=== PATIENT | female | born 1925 | race Caucasian/White ===

== ENCOUNTER 2016-06-19 12:44 | Emergency (ER) | payer BC ==
[2016-06-19 12:51] VITALS: BP 147/60; PULSE 74; TEMP 97.4; BMI 23.2
--- NOTE | 2016-06-19 12:58 | PDOC ---
History of Present Illness - General Chief Complaint: Injury Stated Complaint: HEAD INJURY Time Seen by Provider: 06/19/16 12:46 - History of Present Illness Initial Comments: 06/19/16 12:58 Chief complaint: No complaints History of present illness: Patient sent from her [place] [facility] after experiencing a fall this morning. She was standing in front of her chair, sunk to the ground, impacting her buttock and striking her head against the front of an arm chair. No loss of consciousness. No change in mental status, according to the facility. 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 Medications: Aricept, Namenda, losartan, atenolol, potassium, simvastatin, furosemide, latuda, Protonix, vitamins Social history: Requires total care at the [facility] facility, has advanced directive and DNR in place. Family history: Unavailable Physical exam: Patient is awake and will follow commands. However, she is nonverbal. Appears in no distress Afebrile, vital signs normal Head atraumatic. No sign of obvious injury including abrasions, lacerations, contusions, ecchymoses, or contusions PERRLA, fundi benign, ENT clear Neck without point tenderness or deformity, good range of motion without obvious pain Lungs clear. No chest wall or rib cage tenderness or deformity CV S1 and S2 normal 2/6 systolic ejection murmur left sternal border no JVD or edema no bruits Abdomen soft nontender without mass or organomegaly Skin clear, no rash, adequate turgor and what mucous membranes Extremities no CCE Neurological C2 to 12 intact except for right lower facial palsy, which is old. There is mild right hemiparesis. Babinski is up on the right. Impression: Fall without loss of consciousness, no evidence of significant injury Plan: EKG and cardiac enzymes, CBC and chemistries, observation. 06/19/16 13:07 Past History - Past Medical History Allergies/Adverse Reactions: Allergies Allergy/AdvReac Type Severity Reaction Status Date / Time No Known Allergies Allergy Verified 06/19/16 12:45 Home Medications: Ambulatory Orders Atenolol [Tenormin -] 50 mg PO BID 12/10/15 Cholecalciferol (Vitamin D3) [Vitamin D3] 2,000 unit PO DAILY 12/10/15 Cyanocobalamin [Vitamin B12 -] 1,000 mcg PO DAILY 12/10/15 Donepezil HCl [Aricept] 10 mg PO DAILY 12/10/15 Furosemide [Lasix -] 40 mg PO Q2D 12/10/15 Furosemide [Lasix -] 80 mg PO DAILY 12/10/15 Lurasidone HCl [Latuda] 40 mg PO HS 12/10/15 Memantine HCl [Namenda -] 10 mg PO BID 12/10/15 Pantoprazole Sodium [Protonix] 40 mg PO DAILY 12/10/15 Potassium Chloride 10 meq PO DAILY 12/10/15 Simvastatin [Zocor -] 10 mg PO HS 12/10/15 Losartan Potassium 50 mg PO DAILY 05/29/16 Anemia: Yes (perncious) Asthma: No Cancer: No Cardiac Disorders: No CVA: No COPD: No CHF: No Dementia: Yes (aggresive) Diabetes: No GI Disorders: Yes (gerd,chronic constipation,) Disorders: Yes (AZOTEMIA) HTN: Yes Hypercholesterolemia: Yes Liver Disease: No Psychiatric Problems: Yes (depression) Seizures: No Thyroid Disease: No Other medical history: HYPOKALEMIA, S/P FALL/PELVIC FX - Surgical History Abdominal Surgery: No Appendectomy: No Cardiac Surgery: No Cholecystectomy: No Lung Surgery: No Neurologic Surgery: No Orthopedic Surgery: Yes - Immunization History Immunization Up to Date: Yes - Psycho/Social/Smoking Cessation Hx Anxiety: No Suicidal Ideation: No Smoking Status: No Smoking History: Unknown if ever smoked Have you smoked in the past 12 months: No Number of Cigarettes Smoked Daily: 0 Information on smoking cessation initiated: No Hx Alcohol Use: No Drug/Substance Use Hx: No Substance Use Type: None Hx Substance Use Treatment: No Trauma Specific PMHX - Complaint Specific PMHX Back Injury: Yes (pelvis fx diagnosed recently , no displacement) *Physical Exam - Vital Signs Last Vital Signs Temp Pulse Resp BP Pulse Ox 97.4 F L 74 18 147/60 98 06/19/16 12:45 06/19/16 12:45 06/19/16 12:45 06/19/16 12:45 06/19/16 12:45 ED Treatment Course - LABORATORY CBC & Chemistry Diagram: 06/19/16 13:15 06/19/16 13:15 Medical Decision Making - Medical Decision Making 06/19/16 14:30 EKG reviewed: Sinus rhythm with first-degree AV block. Otherwise normal axes and intervals. No ST-T wave changes. Labs reviewed: No significant abnormalities. Normal cardiac enzymes. Patient stable, in no distress moving all extremities, no apparent discomfort with head movement, movement of the shoulders or movement of the hips. No significant injury is apparent. Return to nursing facility with observation and follow-up as needed. *DC/Admit/Observation/Transfer Diagnosis at time of Disposition: Accidental fall Qualifiers: Encounter type: initial encounter Qualified Code(s): W19.XXXA - Unspecified fall, initial encounter - Discharge Dispostion Disposition: HOME Condition at time of disposition: Stable Admit: No - Referrals Referrals: Joy Devries MD [Primary Care Provider] - 24 hours - Patient Instructions Printed Discharge Instructions: How to Prevent Falls
[2016-06-19 13:31] LABS: BASOPHIL 0.5 % (0-2.0); EOSINOPHIL 1.4 % (0-4.5); MCHC 32.8 g/dl (32.0-36.0); MEAN CELL VOLUME 94.3 fl (80-96); MEAN PLT VOLUME 8.2 fl (7.5-11.1); NEUTROPHILS 70.9 % (42.8-82.8); PLATELET COUNT 249 K/MM3 (134-434); RDW 12.7 % (11.6-15.6); WHITE BLOOD COUNT 10.3 K/mm3 (4.0-10.0)
[2016-06-19 13:46] LABS: CPK(DFH) 39 IU/L (26-140)
[2016-06-19 13:47] LABS: ALBUMIN 3.5 g/dl (3.5-5.0); BILIRUBIN,TOTAL 0.4 mg/dl (0.2-1.0); CALCIUM 9.2 mg/dl (8.4-10.2); CREATININE 2.3 mg/dl (0.6-1.3); TOT PROT 6.3 g/dl (6.4-8.3)
[2016-06-19 13:55] LABS: TROPONIN I (DFP) < 0.03 ng/ml (0.03-0.50)
--- NOTE | 2016-06-19 15:43 | EKG ---
Test Reason : Blood Pressure : / mmHG Vent. Rate : 062 BPM Atrial Rate : 062 BPM P-R Int : 220 ms QRS Dur : 108 ms QT Int : 450 ms P-R-T Axes : 073 003 082 degrees QTc Int : 456 ms POOR DATA QUALITY, INTERPRETATION MAY BE ADVERSELY AFFECTED SINUS RHYTHM WITH 1ST DEGREE A-V BLOCK OTHERWISE NORMAL ECG WHEN COMPARED WITH ECG OF 05-DEC-2012 09:41, PREMATURE SUPRAVENTRICULAR COMPLEXES ARE NO LONGER PRESENT DE INTERVAL HAS INCREASED VENT. RATE HAS DECREASED BY 32 BPM Confirmed by CHANDRAKANT BLANK MD ([id number]) on 06/19/2016 3:43:05 PM Referred By: DAYANARA ORO Confirmed By:CHANDRAKANT BLANK MD
== END 2016-06-19 15:10 | disposition home or self-care (01) ==
LOC: FER 12:44
DX: Z04.3 Encounter for examination and observation following other accident (principal); W18.39XA Other fall on same level, initial encounter; Y93.89 Activity, other specified; Y92.129 Unspecified place in nursing home as the place of occurrence of the external cause; F03.90 Unspecified dementia, unspecified severity, without behavioral disturbance, psychotic disturbance, mood disturbance, and anxiety; K21.9 Gastro-esophageal reflux disease without esophagitis; I10 Essential (primary) hypertension; F32.9 Major depressive disorder, single episode, unspecified; E87.6 Hypokalemia; D51.0 Vitamin B12 deficiency anemia due to intrinsic factor deficiency
CPT/HCPCS: 36415; 80053; 82550; 84484; 85025; 93005; 99283-25

== ENCOUNTER 2016-07-06 17:20 | Emergency (ER) | payer BC ==
[2016-07-06 18:03] VITALS: BP 132/55; PULSE 58; TEMP 98.1; BMI 23.1
--- NOTE | 2016-07-06 19:03 | PDOC ---
History of Present Illness - General History Source: [facility]ustodial Records Exam Limitations: Dementia - History of Present Illness Initial Comments: 07/06/16 19:18 The patient is a 89 year old female, with a significant past medical history of CVA with right facial and hemiparesis, severe dementia, GERD, HTN, CHF, and elevated cholesterol who presents to the emergency department s/p mechanical fall, today. The patient is not on any blood thinners. She denies any complaints of pain. jail reports the fall was unwitnessed and states there was a red nilo on the patients back. This HPI is thus limited due to dementia. PAST MEDICAL HISTORY: See HPI PAST SURGICAL HISTORY: No significant history. FAMILY HISTORY: No pertinent history. SOCIAL HISTORY: Patient lives in [facility] and is retired. MEDICATIONS: Reviewed. ALLERGIES: As per nursing notes. This ROS is limited due to dementia. Exam: General: Well-nourished well-developed individual, no acute distress HEENT: Throat: Normal, tonsils normal, no erythema or exudate Neck: Supple, no meningeal signs, no lymphadenopathy Eyes: Pupils equal reactive and round, extraocular motion intact Chest: Nontender to palpation Cardiac: S1-S2 normal, regular rate and rhythm, no murmurs rubs or gallops Respiratory: Lungs clear to auscultation bilateral Abdomen: Soft, nondistended, normal bowel sounds, nontender to palpation diffusely Extremities: Warm, dry, no cyanosis, clubbing, or edema Skin: No rashes Neuro: Alert nonverbal demented, nonfocal exam, grossly intact, able to ambulate with assistance. Psych: Normal mood and affect <Vance Akhtar - Last Filed: 07/06/16 19:49> - General History Source: Custodial Records Exam Limitations: Dementia - History of Present Illness Initial Comments: 07/06/16 19:53 A portion of this note was documented by scribe services under my direction. I have reviewed the details of the note, within reason, and agree with the documentation. The case summary and management plan written by me. Assessment and plan: This is a severely demented 89-year-old female who was sent in from a [facility] after being found sitting on the floor with a questionable area of redness on her back. It is assumed that patient slipped landing onto her butt. No evidence of patient hit her head or that there is any other injury. <Courtney Ambriz I - Last Filed: 07/06/16 19:56> - General Chief Complaint: Injury Stated Complaint: FELL Time Seen by Provider: 07/06/16 18:58 Past History <Vance Akhtar - Last Filed: 07/06/16 19:49> - Past Medical History Anemia: Yes (perncious) Asthma: No Cancer: No Cardiac Disorders: No CVA: No COPD: No CHF: No Dementia: Yes (aggresive) Diabetes: No GI Disorders: Yes (gerd,chronic constipation,) Disorders: Yes (AZOTEMIA) HTN: Yes Hypercholesterolemia: Yes Liver Disease: No Psychiatric Problems: Yes (depression) Seizures: No Thyroid Disease: No - Surgical History Abdominal Surgery: No Appendectomy: No Cardiac Surgery: No Cholecystectomy: No Lung Surgery: No Neurologic Surgery: No Orthopedic Surgery: Yes - Immunization History Immunization Up to Date: Yes - Psycho/Social/Smoking Cessation Hx Anxiety: No Suicidal Ideation: No Smoking Status: No Smoking History: Unknown if ever smoked Have you smoked in the past 12 months: No Number of Cigarettes Smoked Daily: 0 Information on smoking cessation initiated: No Hx Alcohol Use: No Drug/Substance Use Hx: No Substance Use Type: None Hx Substance Use Treatment: No <Courtney Ambriz I - Last Filed: 07/06/16 19:56> - Past Medical History Allergies/Adverse Reactions: Allergies Allergy/AdvReac Type Severity Reaction Status Date / Time No Known Allergies Allergy Verified 06/19/16 12:45 Home Medications: Ambulatory Orders Atenolol [Tenormin -] 50 mg PO BID 12/10/15 Cholecalciferol (Vitamin D3) [Vitamin D3] 2,000 unit PO DAILY 12/10/15 Cyanocobalamin [Vitamin B12 -] 1,000 mcg PO DAILY 12/10/15 Donepezil HCl [Aricept] 10 mg PO DAILY 12/10/15 Furosemide [Lasix -] 40 mg PO Q2D 12/10/15 Furosemide [Lasix -] 80 mg PO DAILY 12/10/15 Lurasidone HCl [Latuda] 40 mg PO HS 12/10/15 Memantine HCl [Namenda -] 10 mg PO BID 12/10/15 Pantoprazole Sodium [Protonix] 40 mg PO DAILY 12/10/15 Potassium Chloride 10 meq PO DAILY 12/10/15 Simvastatin [Zocor -] 10 mg PO HS 12/10/15 Losartan Potassium 50 mg PO DAILY 05/29/16 Trauma Specific PMHX - Complaint Specific PMHX Back Injury: Yes (pelvis fx diagnosed recently , no displacement) <Courtney Ambriz I - Last Filed: 07/06/16 19:56> *Physical Exam - Vital Signs Last Vital Signs Temp Pulse Resp BP Pulse Ox 98.1 F 58 L 16 132/55 100 07/06/16 17:35 07/06/16 17:35 07/06/16 17:35 07/06/16 17:35 07/06/16 17:35 <Vance Akhtar - Last Filed: 07/06/16 19:49> - Vital Signs Last Vital Signs Temp Pulse Resp BP Pulse Ox 98.1 F 58 L 16 132/55 100 07/06/16 17:35 07/06/16 17:35 07/06/16 17:35 07/06/16 17:35 07/06/16 17:35 <Courtney Ambriz I - Last Filed: 07/06/16 19:56> *DC/Admit/Observation/Transfer - Attestations Scribe Attestion: 07/06/16 19:19 Documentation prepared by Vance Akhtar, acting as medical attendant for Courtney Ambriz MD. <Vance Akhtar - Last Filed: 07/06/16 19:49> <Courtney Ambriz I - Last Filed: 07/06/16 19:56> Diagnosis at time of Disposition: Accidental fall - Discharge Dispostion Disposition: HOME Condition at time of disposition: Good - Referrals Referrals: Joy Devries MD [Primary Care Provider] - - Patient Instructions Additional Instructions: Return to the emergency department immediately with ANY new, persistent or worsening symptoms. Continue any medications as previously prescribed by your physician. You should follow up with your primary doctor as soon as possible regarding today's emergency department visit. . Please make sure your doctor reviews the results of your emergency evaluation. Thank you for coming to the Emergency Department today for your care. It was a pleasure to see you today. Please note that your evaluation is INCOMPLETE until you follow-up with your doctor.
== END 2016-07-06 20:02 ==
LOC: FER 17:20
DX: Z04.3 Encounter for examination and observation following other accident (principal); F03.90 Unspecified dementia, unspecified severity, without behavioral disturbance, psychotic disturbance, mood disturbance, and anxiety; I10 Essential (primary) hypertension; I50.9 Heart failure, unspecified; E78.00 Pure hypercholesterolemia, unspecified; K21.9 Gastro-esophageal reflux disease without esophagitis; F32.9 Major depressive disorder, single episode, unspecified; W18.30XA Fall on same level, unspecified, initial encounter; Y93.9 Activity, unspecified; Y92.129 Unspecified place in nursing home as the place of occurrence of the external cause
CPT/HCPCS: 99282-25

== ENCOUNTER 2016-08-30 09:38 | Emergency (ER) | payer BC ==
[2016-08-30 09:59] VITALS: BP 135/64; PULSE 55; TEMP 98; BMI 22.8
--- NOTE | 2016-08-30 10:20 | PDOC ---
History of Present Illness - General Chief Complaint: Injury Stated Complaint: FELL, STRUCK HEAD Time Seen by Provider: 08/30/16 09:52 - History of Present Illness Initial Comments: 08/30/16 10:13 Chief complaint: Patient has no complaints History of present illness: Patient with severe dementia resident of a local alf was brushing her teeth and lifted her head, striking it on the edge of a medicine cabinet. Sustained small laceration of the scalp, crown of the head. Did not fall. Did not lose consciousness. Mental status has not changed according to her caregivers. Review of systems: Patient denies all symptoms, though she suffers from severe dementia she does not appear to be experiencing any discomfort, pain, or other physical problems. Past medical history: Severe Alzheimer's dementia, CHF, high blood pressure, elevated cholesterol, GERD Medications: Atenolol, losartan, furosemide, potassium, Protonix, Namenda, Aricept, Latuda Social/family history: Reviewed from old record, noncontributory Physical exam: Patient is awake, alert, follows commands and answers questions. However she is severely confused. This is due to chronic Alzheimer's Head: 1 cm superficial laceration of the crown of the scalp, no bruising, hematoma, crepitus, depression, or tenderness to palpation PERRLA, fundi benign with sharp disc margins and good central venous pulsations. ENT clear Neck without tenderness or deformity, full range of motion without pain Lungs clear CV regular without murmur rub or gallop Abdomen benign Hips and pelvis without trauma Extremities without trauma, no CCE Neurological cranial nerves grossly intact. No focal sensory or motor deficits apparent. Strength appears full bilaterally Impression: Superficial laceration of the scalp, no significant head injury Plan: Repair of laceration, instructions to the alf facility, recheck as needed. Past History - Past Medical History Allergies/Adverse Reactions: Allergies Allergy/AdvReac Type Severity Reaction Status Date / Time No Known Allergies Allergy Verified 08/30/16 10:02 Home Medications: Ambulatory Orders Atenolol [Tenormin -] 50 mg PO BID 12/10/15 Cholecalciferol (Vitamin D3) [Vitamin D3] 2,000 unit PO DAILY 12/10/15 Cyanocobalamin [Vitamin B12 -] 1,000 mcg PO DAILY 12/10/15 Donepezil HCl [Aricept] 10 mg PO DAILY 12/10/15 Furosemide [Lasix -] 40 mg PO Q2D 12/10/15 Furosemide [Lasix -] 80 mg PO DAILY 12/10/15 Lurasidone HCl [Latuda] 40 mg PO HS 12/10/15 Memantine HCl [Namenda -] 10 mg PO BID 12/10/15 Pantoprazole Sodium [Protonix] 40 mg PO DAILY 12/10/15 Potassium Chloride 10 meq PO DAILY 12/10/15 Simvastatin [Zocor -] 10 mg PO HS 12/10/15 Losartan Potassium 50 mg PO DAILY 05/29/16 Anemia: Yes (perncious) Asthma: No Cancer: No Cardiac Disorders: No CVA: No COPD: No CHF: No Dementia: Yes (aggresive) Diabetes: No GI Disorders: Yes (gerd,chronic constipation,) Disorders: Yes (AZOTEMIA) HTN: Yes Hypercholesterolemia: Yes Liver Disease: No Psychiatric Problems: Yes (depression) Seizures: No Thyroid Disease: No - Surgical History Abdominal Surgery: No Appendectomy: No Cardiac Surgery: No Cholecystectomy: No Lung Surgery: No Neurologic Surgery: No Orthopedic Surgery: Yes - Immunization History Immunization Up to Date: Yes - Psycho/Social/Smoking Cessation Hx Anxiety: No Suicidal Ideation: No Smoking Status: No Smoking History: Unknown if ever smoked Have you smoked in the past 12 months: No Number of Cigarettes Smoked Daily: 0 Information on smoking cessation initiated: No Hx Alcohol Use: No Drug/Substance Use Hx: No Substance Use Type: None Hx Substance Use Treatment: No Trauma Specific PMHX - Complaint Specific PMHX Back Injury: Yes (pelvis fx diagnosed recently , no displacement) *Physical Exam - Vital Signs Last Vital Signs Temp Pulse Resp BP Pulse Ox 98.0 F 55 L 16 135/64 100 08/30/16 09:45 08/30/16 09:45 08/30/16 09:45 08/30/16 09:45 08/30/16 09:45 Medical Decision Making - Medical Decision Making 08/30/16 10:20 Procedure note: Repair of laceration Wound was scrubbed with normal saline, irrigated, and hemostasis was obtained with pressure. Wound edges were approximated with skin adhesive, with hemostasis and good alignment. Wound care instructions to the facility. Discharged in no distress, *DC/Admit/Observation/Transfer Diagnosis at time of Disposition: Laceration of scalp - Discharge Dispostion Disposition: HOME Condition at time of disposition: Improved Admit: No - Patient Instructions Printed Discharge Instructions: DI for Laceration Repair With Dermabond
== END 2016-08-30 12:05 | disposition home or self-care (01) ==
LOC: FER 09:38 → SUPCPDRO 09:38 → FER 12:05
PROC: 0HQ0XZZ Repair Scalp Skin, External Approach (ICD-10-PCS; principal; 2016-08-30)
DX: S01.01XA Laceration without foreign body of scalp, initial encounter (principal); G30.9 Alzheimer's disease, unspecified; F02.80 Dementia in other diseases classified elsewhere, unspecified severity, without behavioral disturbance, psychotic disturbance, mood disturbance, and anxiety; I50.9 Heart failure, unspecified; I10 Essential (primary) hypertension; E78.00 Pure hypercholesterolemia, unspecified; K21.9 Gastro-esophageal reflux disease without esophagitis; D64.9 Anemia, unspecified; F32.9 Major depressive disorder, single episode, unspecified; W22.01XA Walked into wall, initial encounter; Y93.E8 Activity, other personal hygiene; Y92.002 Bathroom of unspecified non-institutional (private) residence as the place of occurrence of the external cause
CPT/HCPCS: 12001-25; 99282-25